=== PATIENT | male | born 1995 | race Hispanic/Latino ===

== ENCOUNTER 2022-02-18 19:11 | Emergency (ER) | payer SELFPAY ==
--- NOTE | 2022-02-18 21:18 | EDPHYS ---
Physician Documentation [facility] Name: Sukumar Altamirano Age: 26 yrs Sex: Male : 1995 Arrival Date: 02/18/2022 Time: 19:14 Bed 11 Private MD: ED Physician Serge Hein HPI: 02/18 20:29 This 26 yrs old Male presents to ER via Ambulatory with complaints of Rash. kb 20:29 The patient's rash thought to be caused by an unknown cause. The rash is located on the kb body diffusely. The rash can be described as scarlatiniform. Onset: The symptoms/episode began/occurred 3 week(s) ago. Associated signs and symptoms: Pertinent positives: None. Severity of symptoms: At their worst the symptoms were moderate in the emergency department the symptoms are unchanged. The patient has not experienced similar symptoms in the past. The patient has not recently seen a physician. Pt reports diffuse rash that started 3 weeks ago. States he has some itching on his legs only. Reports redness to throat. Denies fever. Has not had any changes in diet or used substances. Has not tried anything to resolve rash. Historical: - Allergies: 19:46 No Known Allergies; kb3 - Home Meds: 19:46 None [Active]; kb3 - PMHx: 19:46 None; kb3 - PSHx: 19:46 None; kb3 - Immunization history:: Adult Immunizations up to date, Client reports receiving the 2nd dose of the Covid vaccine, Last tetanus immunization: up to date. - Social history:: Smoking status: Patient reports the use of cigarette tobacco products, smokes one pack cigarettes per day. Reported history of juuling and/or vaping. ROS: 20:25 Constitutional: Negative for fever, chills, and weight loss. kb 20:25 ENT: Positive for sore throat. 20:25 Skin: Positive for rash, diffusely. 20:25 All other systems are negative. Exam: 20:25 Constitutional: This is a well developed, well nourished patient who is awake, alert, kb and in no acute distress. Head/Face: Normocephalic, atraumatic. Cardiovascular: Regular rate and rhythm with a normal S1 and S2. No gallops, murmurs, or rubs. No pulse deficits. Respiratory: Respirations even and unlabored. No increased work of breathing. Talking in full sentences MS/ Extremity: Pulses equal, no cyanosis. Neurovascular intact. Full, normal range of motion. Neuro: Awake and alert, GCS 15, oriented to person, place, time, and situation. Moves all extremities. Normal gait. Psych: Awake, alert, with orientation to person, place and time. Behavior, mood, and affect are within normal limits. 20:25 ENT: Posterior pharynx: Airway: normal, no evidence of obstruction, Tonsils: are normal in appearance, Uvula: normal, midline, swelling, is not appreciated, erythema, that is marked. Vital Signs: 19:43 BP 135 / 80; Pulse 63; Resp 16; Temp 98.5; Pulse Ox 100% ; Weight 77.11 kg; Height 5 kb3 ft. 8 in. (172.72 cm); Pain 0/10; 19:43 Body Mass Index 25.85 (77.11 kg, 172.72 cm) kb3 MDM: 20:09 Patient medically screened. kb 20:25 Data reviewed: vital signs, nurses notes. Data interpreted: Pulse oximetry: on room air kb is 100 %. Interpretation: normal. 21:08 Counseling: I had a detailed discussion with the patient and/or guardian regarding: the kb historical points, exam findings, and any diagnostic results supporting the discharge/admit diagnosis, lab results, the need for outpatient follow up, a family practitioner, to return to the emergency department if symptoms worsen or persist or if there are any questions or concerns that arise at home. 02/18 20:16 Order name: Strep kb 02/18 21:06 Order name: Group A Streptococcus Rapid Sc; Complete Time: 21:08 EDMS Administered Medications: 21:09 Drug: Pepcid (famotidine) 20 mg Route: PO; ld1 21:30 Follow up: Response: No adverse reaction ld1 21:09 Drug: Benadryl (diphenhydrAMINE) 25 mg Route: PO; ld1 21:30 Follow up: Response: No adverse reaction ld1 21:09 Drug: Augmentin (Amoxicillin-Clavulanate) 875 mg Route: PO; ld1 21:30 Follow up: Response: No adverse reaction ld1 21:29 Drug: SOLU-Medrol (methylPREDNISolone sodium succinate) 125 mg Route: IM; Site: right ld1 deltoid; 21:30 Follow up: Response: No adverse reaction ld1 Disposition Summary: 02/18/22 21:17 Discharge Ordered Location: Home kb Condition: Stable kb Diagnosis - Streptococcal pharyngitis kb - Rash and other nonspecific skin eruption kb Followup: kb - With: Emergency Department - When: As needed - Reason: Worsening of condition Followup: kb - With: Private Physician - When: 2 - 3 days - Reason: Recheck today's complaints, Continuance of care, Re-evaluation by your physician Discharge Instructions: - Discharge Summary Sheet kb - Strep Throat, Adult, [id number] kb - Rash, Adult, [id number] kb Forms: - Medication Reconciliation Form kb - Thank You Letter kb - Antibiotic Education kb - Prescription Opioid Use kb Prescriptions: - Augmentin 875-125 mg Oral Tablet - take 1 tablet by ORAL route every 12 hours for 10 days; 20 tablet; Refills: 0, kb Product Selection Permitted - Pepcid 20 mg Oral Tablet - take 1 tablet by ORAL route once daily for 5 days; 5 tablet; Refills: 0, kb Product Selection Permitted - Prednisone 20 mg Oral Tablet - take 1 tablet by ORAL route once daily for 5 days; 5 tablet; Refills: 0, kb Product Selection Permitted Signatures: Dispatcher [employer] Aurora Betancur FNP-C FNP-Leonie Carnes, RN RN ld1 Khadra Lopez RN RN kb3
--- NOTE | 2022-02-18 21:18 | ER ---
Nurse's Notes [facility] Name: Sukumar Altamirano Age: 26 yrs Sex: Male : 1995 Arrival Date: 02/18/2022 Time: 19:14 Bed 11 Private MD: Diagnosis: Streptococcal pharyngitis;Rash and other nonspecific skin eruption Presentation: 02/18 19:43 Chief complaint: Patient states: Pt reports diffuse rash x3 weeks. Maculopapular rash kb3 noted across bilateral arms, legs, torso. PT reports itching. Denies pain. Coronavirus screen: Vaccine status: Patient reports receiving the 2nd dose of the covid vaccine. Client denies travel out of the [place] in the last 14 days. Ebola Screen: Patient negative for fever greater than or equal to 101.5 degrees Fahrenheit, and additional compatible Ebola Virus Disease symptoms Patient denies exposure to infectious person. Patient denies travel to an Ebola-affected area in the 21 days before illness onset. No symptoms or risks identified at this time. Initial Sepsis Screen: Does the patient meet any 2 criteria? No. Patient's initial sepsis screen is negative. Does the patient have a suspected source of infection? No. Patient's initial sepsis screen is negative. Risk Assessment: Do you want to hurt yourself or someone else? Patient reports no desire to harm self or others. Onset of symptoms was January 26, 2022. 19:43 Method Of Arrival: Ambulatory kb3 19:43 Acuity: YOLANDE 4 kb3 Triage Assessment: 19:46 General: Appears in no apparent distress. Behavior is calm, cooperative. Pain: Denies kb3 pain. Derm: Rash noted that is macular, papular, red, raised. Historical: - Allergies: 19:46 No Known Allergies; kb3 - Home Meds: 19:46 None [Active]; kb3 - PMHx: 19:46 None; kb3 - PSHx: 19:46 None; kb3 - Immunization history:: Adult Immunizations up to date, Client reports receiving the 2nd dose of the Covid vaccine, Last tetanus immunization: up to date. - Social history:: Smoking status: Patient reports the use of cigarette tobacco products, smokes one pack cigarettes per day. Reported history of juuling and/or vaping. Screenin:02 Abuse screen: Denies threats or abuse. Denies injuries from another. Nutritional ld1 screening: No deficits noted. Tuberculosis screening: No symptoms or risk factors identified. Fall Risk None identified. Assessment: 20:02 Reassessment: See triage assessment. ld1 Vital Signs: 19:43 BP 135 / 80; Pulse 63; Resp 16; Temp 98.5; Pulse Ox 100% ; Weight 77.11 kg; Height 5 kb3 ft. 8 in. (172.72 cm); Pain 0/10; 19:43 Body Mass Index 25.85 (77.11 kg, 172.72 cm) kb3 ED Course: 19:14 Patient arrived in ED. am2 19:46 Triage completed. kb3 19:46 Arm band placed on right wrist. kb3 20:02 Leonie Woodward, ROSITA is Primary Nurse. ld1 20:02 Patient has correct armband on for positive identification. Placed in gown. Bed in low ld1 position. Call light in reach. Side rails up X2. Pulse ox on. NIBP on. Door closed. Noise minimized. Warm blanket given. 20:02 No provider procedures requiring assistance completed. ld1 20:09 Aurora Sy FNP-C is PHCP. kb 20:09 Serge Hein MD is Attending Physician. kb 20:19 Strep Sent. ld1 21:30 Patient did not have IV access during this emergency room visit. ld1 Administered Medications: 21:09 Drug: Pepcid (famotidine) 20 mg Route: PO; ld1 21:30 Follow up: Response: No adverse reaction ld1 21:09 Drug: Benadryl (diphenhydrAMINE) 25 mg Route: PO; ld1 21:30 Follow up: Response: No adverse reaction ld1 21:09 Drug: Augmentin (Amoxicillin-Clavulanate) 875 mg Route: PO; ld1 21:30 Follow up: Response: No adverse reaction ld1 21:29 Drug: SOLU-Medrol (methylPREDNISolone sodium succinate) 125 mg Route: IM; Site: right ld1 deltoid; 21:30 Follow up: Response: No adverse reaction ld1 Medication: 20:02 VIS not applicable for this client. ld1 Outcome: 21:17 Discharge ordered by . kb 21:30 Discharged to home ambulatory, with family. ld1 21:30 Condition: stable 21:30 Discharge instructions given to patient, Instructed on discharge instructions, follow up and referral plans. medication usage, Demonstrated understanding of instructions, follow-up care, medications, Prescriptions given X 3. 21:30 Patient left the ED. ld1 Signatures: Aurora Sy, SENIOR ELECTRICAL DESIGN ENGINEER-C SENIOR ELECTRICAL DESIGN ENGINEER-CkJeniffer Perez am2 Leonie Woodward RN RN ld1 Khadra Lopez, RN RN kb3
[2022-02-18] MEDS ORDERED: DIPHENHYDRAMINE 25 MG TAB/CAP ONE (21:20)
[2022-02-18] MEDS ORDERED: METHYLPREDNISOLONE 125 MG INJ ONE (21:20)
[2022-02-18] MEDS ORDERED: AMOX/K CLAV 875 MG TAB ONE (21:21)
[2022-02-18] MEDS ORDERED: FAMOTIDINE 20 MG TAB ONE (21:21)
[2022-02-19 09:07] VITALS: BP 135/80; TEMP 98.5; O2SAT 100
== END 2022-02-18 21:30 | disposition home or self-care (01) ==
LOC: ER 19:11
DX: J02.0 Streptococcal pharyngitis (principal); R21 Rash and other nonspecific skin eruption
CPT/HCPCS: 87070; 87081; 96372; 99284; J2930